=== PATIENT | female | born 1940 | race Caucasian/White ===

== ENCOUNTER → 2016-06-21 | Outpatient (CLI) | payer MEDICARE, OTHER ==
[~2016-06-21] MED LIST: ALEVE220 MG; AMBIEN 5MG TAB5 MG PO; AMOXICOT500 MG PO; ARICEPT 5MG TAB5 MG PO; ASPIRIN 81MG TA81 MG PO; BACTRIM DS 8001 TAB PO; BYSTOLIC5 MG PO; CIPROFLOXACIN500 MG; CITALOPRAM10 MG PO; CYMBALTA30 M1; CYMBALTA30 MG PO; CYMBALTA60 MG PO; Ciprofloxacin250 MG; DIOVAN160 MG PO; DOXYCYCLINE HY100 MG PO; ESTRACE0.1 MG/GM; FROVA2.5 MG PO; FUROSEMIDE 40MG40 M1; GABAPENTIN 100100 MG; GABAPENTIN300 M1 PO; HIPREX1 GM PO; HYDROCHLOROTH12.5 M1 PO; HYDROCHLOROTHIA25 M1 PO; IBANDRONATE SO150 MG PO; LISINOPRIL/HCTZ1 TA3 PO; LISINOPRIL/HYDR1 TAB PO; NEXIUM40 MG PO; OSTEO BI-FLEX1 TAB; PEPCID 20MG TAB20 MG PO; PYRIDIUM 200MG200 MG PO; PYRIDIUM200 M1 PO; SIMVASTATIN20 MG PO; TESSALON PERLE100 MG PO; VYTORIN 10 MG-21 TAB PO; VYTORIN PO; ZOLPIDEM 5MG TAB5 MG PO
--- NOTE | 2016-06-21 15:31 | RADIOLOGY REPORT PS360 ---
BONE DENSITOMETRY(HIP:LT SPINE HISTORY: OSTEOPROSIS COMPARISON: 05/06/2012 FINDINGS: The BMD measured at the right femoral neck is 0.786 g/cm squared with a T score of -1.8. This is considered Osteopenic according to the World Health Organization criteria. Fracture risk is Moderate. Treatment is advised. IMPRESSION: Osteopenia of the right hip. The total mean density of the hips has increased by 8% compared to the previous exam. Recommend follow-up exam June 2018.
== END ==
LOC: RAD 13:00
DX: M81.0 Age-related osteoporosis without current pathological fracture (principal)

== ENCOUNTER → 2017-03-25 | Outpatient (CLI) | payer MEDICARE, OTHER ==
[~2017-03-25] MED LIST changes: +GABAPENTIN100 M1
--- NOTE | 2017-03-25 14:46 | RADIOLOGY REPORT PS360 ---
KNEE-4 OR 5 VIEWS-RT HISTORY: RT KNEE PAIN ORDERING PHYSICIAN: PRO WEI MD PATIENT AGE: 77 years COMPARISON: None FINDINGS: Weightbearing views performed. Jackpot view also performed No fracture or dislocation. No lytic or blastic change. Normal mineralization. There are mild osteoarthritic changes at the patellofemoral joint and medial compartment. IMPRESSION: Mild osteoarthritis
--- NOTE | 2017-03-25 14:46 | RADIOLOGY REPORT PS360 ---
KNEE-4 OR 5 VIEWS-RT HISTORY: RT KNEE PAIN ORDERING PHYSICIAN: PRO WEI MD PATIENT AGE: 77 years COMPARISON: None FINDINGS: Weightbearing views performed. [place] view also performed No fracture or dislocation. No lytic or blastic change. Normal mineralization. There are mild osteoarthritic changes at the patellofemoral joint and medial compartment. IMPRESSION: Mild osteoarthritis
== END ==
LOC: RAD 13:18
DX: M25.561 Pain in right knee (principal)

== ENCOUNTER → 2017-04-04 | Outpatient (CLI) | payer MEDICARE, OTHER ==
--- NOTE | 2017-04-05 11:00 | RADIOLOGY REPORT PS360 ---
MRI-LOW EXT ANY JOINT W/O-RT HISTORY: Posterior right knee pain RIGHT KNEE PAIN, UNSPECIFIED CHRINICITY ORDERING PHYSICIAN: PRO WEI MD PATIENT AGE: 77 years COMPARISON: Radiograph of 03/25/2017 along with multiple other previous radiographs and a CT scan 08/12/2015. TECHNIQUE: Standard multiplanar multiecho sequences are performed without contrast. FINDINGS: The cruciate ligaments are intact. The quadriceps tendon appears intact. There is slight increased T1 and T2 signal involving the mid aspect of the patellar tendon consistent with tendinopathy. The collateral ligaments have an unremarkable appearance. No evidence of meniscal tear.. There is a curvilinear area of decreased T1 and increased T2 signal involving the posterior and central aspect of the proximal tibia at the insertion site of the posterior cruciate ligament. This corresponds to the previously noted fracture identified on the knee CT of 08/12/2015. This is nondisplaced. There is a small knee joint effusion with a small Pastrana's cyst at 2 cm. The patellar cartilage is preserved. No significant arthritic changes. IMPRESSION: 1. Nondisplaced fracture involves the posterior central and proximal aspect of the tibia at the insertion site of the posterior cruciate ligament. 2. Small knee joint effusion. 3. No internal derangement
== END ==
LOC: RAD 04-01 08:00
DX: M25.561 Pain in right knee (principal)

== ENCOUNTER → 2017-04-22 | Outpatient (CLI) | payer MEDICARE, OTHER ==
--- NOTE | 2017-04-22 14:45 | RADIOLOGY REPORT PS360 ---
[id number]-3 VIEWS HISTORY: RT SHOULDER PAIN ORDERING PHYSICIAN: PRO WEI MD PATIENT AGE: 77 years COMPARISON: None FINDINGS: There are moderate osteoarthritic changes of the right shoulder at the glenohumeral joint. Hypertrophic changes are present involving the distal acromion inferiorly with subacromial stenosis. There is widening of the acromioclavicular joint space. It appears that the patient has had a prior osteotomy of the distal clavicle with resultant widening of the joint space. No acute fracture or dislocation. IMPRESSION: 1. 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 2. Postsurgical changes of the distal clavicle
== END ==
LOC: RAD 13:14
DX: M25.511 Pain in right shoulder (principal)